=== PATIENT | female | born 1980 | race African-American/Black ===

== ENCOUNTER 2018-08-18 13:46 | Emergency (ER) | payer BC, OTHER ==
[~2018-08-18] VITALS: Ht 154.9 cm; Wt 99.8 kg
[2018-08-18] MEDS ORDERED: KETOROLAC TROMETHAMINE 60 MG/2 ML VIAL IM ONE (14:30)
--- NOTE | 2018-08-18 15:21 | Diagnostic Imaging Report ---
Exam: Cervical spine AP lateral oblique History: Neck pain Comparison: None. Findings: No fracture or malalignment. Disc spaces preserved. No abnormal soft tissue calcification or soft tissue defect. Impression: No acute osseous abnormality Signed by: Dr. West Ruiz M.D. on 08/18/2018 3:18 PM
== END 2018-08-18 15:59 | disposition home or self-care (01) ==
LOC: ER 13:46
DX: M54.2 Cervicalgia (principal); S16.1XXA Strain of muscle, fascia and tendon at neck level, initial encounter; V43.52XA Car driver injured in collision with other type car in traffic accident, initial encounter; Y92.488 Other paved roadways as the place of occurrence of the external cause
CPT/HCPCS: 72050; 99283; J1885